=== PATIENT | female | born 1970 | race African-American/Black ===

== ENCOUNTER 2017-05-30 09:56 | Emergency (ER) | payer OTHER ==
[~2017-05-30] VITALS: Ht 167.6 cm; Wt 82.0 kg
[~2017-05-30 09:56] MED LIST: HYDR25TA PO
[2017-05-30 13:01] VITALS: BP 164/94
== END 2017-05-30 13:05 | disposition home or self-care (01) ==
LOC: ER 11:17
DX: S63.619A Unspecified sprain of unspecified finger, initial encounter (principal); I10 Essential (primary) hypertension; Z76.0 Encounter for issue of repeat prescription; X58.XXXA Exposure to other specified factors, initial encounter; Y93.89 Activity, other specified; Y92.89 Other specified places as the place of occurrence of the external cause; Y99.8 Other external cause status
CPT/HCPCS: 29130; 73140; 99284; Z7610

== ENCOUNTER 2019-09-20 14:41 | Emergency (ER) | payer MEDICAID, OTHER ==
[~2019-09-20] VITALS: Ht 167.6 cm; Wt 85.0 kg
[2019-09-20] MEDS ORDERED: IBUPROFEN 800MG TABLET PO ONE (19:00)
[2019-09-20 20:00] VITALS: BP 147/84
== END 2019-09-20 20:01 | disposition home or self-care (01) ==
LOC: ER 14:41
DX: S50.02XA Contusion of left elbow, initial encounter (principal); I10 Essential (primary) hypertension; Z98.890 Other specified postprocedural states; X58.XXXA Exposure to other specified factors, initial encounter; Y93.89 Activity, other specified; Y92.89 Other specified places as the place of occurrence of the external cause; Y99.8 Other external cause status
CPT/HCPCS: 29105; 73080; 99283

== ENCOUNTER 2021-12-27 21:21 | Emergency (ER) | payer MEDICAID, OTHER ==
[~2021-12-27] VITALS: Ht 170.2 cm; Wt 95.0 kg
[2021-12-27] MEDS ORDERED: CLONIDINE 0.2MG TABLET PO ONE (22:45)
[2021-12-27] MEDS ORDERED: IBUPROFEN 400MG TABLET PO ONE (22:45)
[2021-12-27] MEDS ORDERED: AMOXICILLIN/POTASSIUM CLAVULANATE 875/125MG TAB PO ONE (22:45)
[2021-12-27] MEDS ORDERED: HYDROCODONE/ACETAMINOPHEN 5/325MG TABLET PO ONE (22:45)
[2021-12-28] VITALS: BP 115/67
[2021-12-28] MEDS ORDERED: HYDR-4001 MT (00:21)
[2021-12-28] MEDS ORDERED: IBUP-2028 MT (00:21)
[2021-12-28] MEDS ORDERED: AMOX-424 MT (00:21)
== END 2021-12-28 00:30 | disposition home or self-care (01) ==
LOC: ER 21:21
DX: K04.7 Periapical abscess without sinus (principal); I10 Essential (primary) hypertension; Z98.890 Other specified postprocedural states
CPT/HCPCS: 99284